=== PATIENT | female | born 1930 | race Caucasian/White ===

== ENCOUNTER 2021-03-24 16:04 | Emergency (ER) | payer OTHER ==
[~2021-03-24] VITALS: Ht 157.5 cm; Wt 89.8 kg
[2021-03-24] MEDS ORDERED: LEVOTHYROXINE50 MC1 PO (16:42)
[2021-03-24] MEDS ORDERED: NAPROSYN500 M1 PO (16:42)
[2021-03-24] MEDS ORDERED: FUROSEMIDE 20 M20 MG PO (16:42)
[2021-03-24] MEDS ORDERED: POTASSIUM99 M1 PO (16:42)
[2021-03-24] MEDS ORDERED: NEURONTIN 300M300 M2 PO (16:42)
[2021-03-24] MEDS ORDERED: OMEPRAZOLE40 MG PO (16:43)
[2021-03-24] MEDS ORDERED: PRAVACHOL40 MG PO (16:43)
[2021-03-24] MEDS ORDERED: LISINOPRIL30 MG PO (16:43)
[2021-03-24] MEDS ORDERED: XYZAL5 MG PO (16:43)
[2021-03-24] MEDS ORDERED: SERTRALINE HCL100 MG PO (16:43)
[2021-03-24] MEDS ORDERED: SLOW FE142 MG PO (16:44)
[2021-03-24] MEDS ORDERED: COQ-1030 MG PO (16:44)
[2021-03-24] MEDS ORDERED: B-125000 MC1 SUBLING (16:44)
[2021-03-24] MEDS ORDERED: VITAMIN D3250 MC1 PO (16:44)
[2021-03-24 17:03] LABS: ABSOLUTE BASOPHILS 0.1 thou/uL (0.0-0.2); ABSOLUTE LYMPHOCYTES 1.6 thou/uL (0.8-5.3); ABSOLUTE MONOCYTES 0.6 thou/uL (0.0-1.2); ABSOLUTE NEUTROPHILS 3.4 thou/uL (1.6-8.1); EOSINOPHILS 0.3 %; HEMATOCRIT 37.4 % (37.0-47.0); HEMOGLOBIN 12.4 gm/dL (12.0-15.0); LYMPHOCYTES 27.6 %; MCH 25.3 pg (26.0-34.0); MCHC 33.3 g/dL (28.0-37.0); MCV 76.1 fL (80.0-100.0); MONOCYTES 10.7 %; MPV 9.8 fl. (7.2-11.1); NUCLEATED RBCS 0 /100WBC; PLATELET COUNT* 118 thou/uL (150-400); POLYS 60.4 %; RBC 4.91 mil/uL (4.20-5.00); RDW-CV 16.2 % (10.5-14.5); WBC 5.6 thou/uL (4.0-11.0)
[2021-03-24 17:07] LABS: CALCIUM 9.3 mg/dL (8.5-10.1); POTASSIUM 3.9 mmol/L (3.5-5.1)
[2021-03-24 17:17] LABS: ALBUMIN 3.7 g/dL (3.4-5.0); TOTAL BILIRUBIN 0.5 mg/dL (<0.1-1.0); TOTAL PROTEIN 7.2 g/dL (6.4-8.2)
[2021-03-24] MEDS ORDERED: AUGMENTIN 875-1 EACH PO (18:12)
[2021-03-24 19:15] VITALS: BP 163/97
--- NOTE | 2021-03-25 14:34 | EKG ---
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: CLARISSA : 1930 Requested By: Jhonathan Arauz Order Number: [id number] MD: Baltazar Moore Measurements Intervals [place] Rate: 86 P: [place]: QRS: -65 QRSD: 118 T: 100 QT: 426 QTc: 510 Interpretive Statements Atrial fibrillation Left anterior fascicular block Artifact in lead(s) I,II,aVR,aVL,aVF Compared to ECG 03/24/2021 16:28:31 No significant changes Electronically Signed On 03-25-2021 14:34:32 [employer]OLOG[employer] INSTRUCTOR by Baltazar Moore [email or web address] <ELECTRONICALLY SIGNED> By: Baltazar Moore MD, FACC 03/25/21 1434 181 17 Baltazar Moore MD, FACC /EPI
--- NOTE | 2021-03-25 14:34 | EKG ---
[place] [address] ELECTROCARDIOGRAM REPORT Name: NATIVIDAD AMANDA Room: 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: CLARISSA : 1930 Requested By: Jhonathan Arauz Order Number: [id number] MD: Baltazar Moore Measurements Intervals [place] Rate: 88 P: [place]: QRS: -72 QRSD: 115 T: 109 QT: 384 QTc: 465 Interpretive Statements Atrial fibrillation Left anterior fascicular block No previous ECG available for comparison Electronically Signed On 03-25-2021 14:34:22 [employer]IDENTIAL [employer] by Baltazar Moore [email or web address] <ELECTRONICALLY SIGNED> By: Baltazar Moore MD, [facility] 03/25/21 1434 1628 162 Baltazar Moore MD, [facility] /EPI
== END 2021-03-24 19:15 | disposition home or self-care (01) ==
LOC: M.ERS 16:04
PROVIDERS: Emergency Medicine Emergency Medical Services
DX: I48.91 Unspecified atrial fibrillation (principal); Z79.899 Other long term (current) drug therapy; Z88.5 Allergy status to narcotic agent